=== PATIENT | male | born 1990 | race African-American/Black ===

== ENCOUNTER 2021-03-14 11:35 | Emergency (ER) | payer MEDICAID ==
[~2021-03-14] VITALS: Ht 177.8 cm; Wt 75.0 kg
[2021-03-14] MEDS ORDERED: OMNIPAQUE 350 MG/ML, 100ML BOTTLE ONE (11:45)
[2021-03-14] MEDS ORDERED: PLEASE ENTER ALLERGIES MC SCH (12:00)
[2021-03-14] MEDS ORDERED: ONDANSETRON 2MG/ML, 2ML ONE (12:02)
[2021-03-14] MEDS ORDERED: MORPHINE SULFATE 4 MG/ML, 1ML ONE ×2 (12:03→13:08)
[2021-03-14] MEDS: MORPHINE SULFATE 4 MG/ML, 1ML IVPush PRN ×2 (12:06→13:11)
[2021-03-14 12:26] LABS: BASOPHILS % (AUTO) 0 % (0-1); EOSINOPHILS % (AUTO) 0 % (1-7); LYMPHOCYTES % (AUTO) 14 % (22-44); MEAN CORPUSCULAR HEMOGLOBIN 24.5 pg (27.5-34.5); MEAN CORPUSCULAR HGB CONC 32.3 g/dL (33.2-36.2); MEAN PLATELET VOLUME 7.2 fL (7.4-10.4); MONOCYTES % (AUTO) 8 % (2-9); NEUTROPHILS % (AUTO) 77 % (42-75); PLATELET COUNT 337 x10^3/uL (130-400); RED BLOOD COUNT 5.94 x10^6/uL (4.38-5.82); RED CELL DISTRIBUTION WIDTH 15.6 % (9.4-14.8)
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
[2021-03-14] MEDS ORDERED: SODIUM CHLORIDE 0.9% 1,000ML IVBOLUS ONE (12:30)
[2021-03-14] MEDS ORDERED: ONDANSETRON 2MG/ML, 2ML IVPush ONE (12:30)
[2021-03-14] MEDS ORDERED: SODIUM CHLORIDE FLUSH 10ML SYR IVF ONE (12:30)
[2021-03-14 12:35] LABS: ALANINE AMINOTRANSFERASE 30 U/L (12-78); ANION GAP 8 mmol/L (5-15); CALCIUM 8.9 mg/dL (8.5-10.1); CHLORIDE 106 mmol/L (98-107); CREATININE 1.37 mg/dL (0.7-1.3)
[2021-03-14 12:37] LABS: ALKALINE PHOSPHATASE 62 U/L (45-117); BILIRUBIN,TOTAL 0.7 mg/dL (0.2-1.0); TOTAL PROTEIN 8.7 g/dL (6.4-8.2)
--- NOTE | 2021-03-14 12:59 | NUR ---
PT TO CT VIA [facility] AT THIS TIME.
[2021-03-14 13:00] LABS: MICROSCOPIC INDICATED
[2021-03-14] MEDS ORDERED: POTASSIUM CHLORIDE 20 MEQ TAB.ER.PRT PO ONE (14:00)
[2021-03-14] MEDS ORDERED: POTASSIUM CHLORIDE 20 MEQ TAB.ER.PRT ONE (14:01)
[2021-03-14 14:15] VITALS: BP 108/65
== END 2021-03-14 14:16 | disposition home or self-care (01) ==
LOC: ED 14:10
DX: R10.12 Left upper quadrant pain (principal); R11.2 Nausea with vomiting, unspecified; B34.9 Viral infection, unspecified
CPT/HCPCS: 36415; 71045; 74177; 80053; 81001; 83605; 83690; 85025; 87040; 96361; 96374; 96375; 96376; 99285; J2270; J2405; J7030; Q9967

== ENCOUNTER 2021-03-16 10:19 | Emergency (ER) | payer MEDICAID ==
[~2021-03-16] VITALS: Ht 175.3 cm; Wt 78.0 kg
--- NOTE | 2021-03-16 10:46 | NUR ---
SEE TRIAGE. BP CUFF, PULSE OX IN PLACE, URINAL PROVIDED. WARM BLANKET PROVIDED. PT WITH FRIEND AT BS. CALL LIGHT WITHIN REACH.
[2021-03-16] MEDS ORDERED: HALOPERIDOL 5 MG/ML ONE (11:38)
[2021-03-16] MEDS ORDERED: ONDANSETRON 2MG/ML, 2ML ONE (11:38)
[2021-03-16] MEDS ORDERED: SODIUM CHLORIDE FLUSH 10ML SYR IVF ONE (12:00)
[2021-03-16] MEDS ORDERED: ONDANSETRON 2MG/ML, 2ML IVPush ONE (12:00)
[2021-03-16] MEDS ORDERED: HALOPERIDOL 5 MG/ML IV ONE (12:00)
[2021-03-16] MEDS ORDERED: SODIUM CHLORIDE 0.9% 1,000ML IVBOLUS ONE (12:00)
--- NOTE | 2021-03-16 12:01 | NUR ---
PT MEDICATED PER ERP ORDER. HALDOL GIVEN IM, NOT IV IS SHOWN IN EMAR. THIS METHOD VERIFIED WITH ERP. LABS DRAWN. ORDER FOR COVID SWAB ADDED. SWAB COLLECTED/WALKED TO LAB. RESP ISO SIGNAGE PLACED, FAMILY AND PT TOLD OF RESP ISO AND POLICIES. CALL LIGHT WITHIN REACH.
[2021-03-16 12:09] LABS: BASOPHILS % (AUTO) 1 % (0-1); EOSINOPHILS % (AUTO) 0 % (1-7); LYMPHOCYTES % (AUTO) 17 % (22-44); MEAN CORPUSCULAR HGB CONC 31.8 g/dL (33.2-36.2); MEAN PLATELET VOLUME 7.1 fL (7.4-10.4); MONOCYTES % (AUTO) 8 % (2-9); NEUTROPHILS % (AUTO) 74 % (42-75); PLATELET COUNT 358 x10^3/uL (130-400); RED BLOOD COUNT 5.97 x10^6/uL (4.38-5.82); RED CELL DISTRIBUTION WIDTH 15.6 % (9.4-14.8)
[2021-03-16 12:19] LABS: ALANINE AMINOTRANSFERASE 28 U/L (12-78); ALBUMIN 4.1 g/dL (3.4-5.0); ANION GAP 10 mmol/L (5-15); CALCIUM 9.1 mg/dL (8.5-10.1); CHLORIDE 103 mmol/L (98-107); CREATININE 1.31 mg/dL (0.7-1.3)
[2021-03-16 12:21] LABS: ALKALINE PHOSPHATASE 57 U/L (45-117); BILIRUBIN,TOTAL 0.6 mg/dL (0.2-1.0); TOTAL PROTEIN 8.6 g/dL (6.4-8.2)
--- NOTE | 2021-03-16 12:42 | NUR ---
ROUNDED ON PT. PT SLEEPING, WHEN AWAKENED, PT STATES PAIN "A LITTLE BETTER", RATED 6/10. VS UPDATED IN COMPUTER. PT FOR RECHECK.
[2021-03-16 13:42] VITALS: BP 121/61
== END 2021-03-16 14:07 | disposition home or self-care (01) ==
LOC: ED 10:24
DX: R11.10 Vomiting, unspecified (principal); Z20.822 Contact with and (suspected) exposure to COVID-19; R10.84 Generalized abdominal pain
CPT/HCPCS: 36415; 80053; 83690; 85025; 96361; 96374; 96375; 99284; J1630; J2405; J7030; U0003; U0005